=== PATIENT | male | born 1955 | race American Indian/Alaskan Native ===

== ENCOUNTER 2021-09-19 18:09 | Emergency (ER) | payer MEDICAID ==
[2021-09-19 18:37] VITALS: BP 133/90
[2021-09-20] MEDS ORDERED: cephALEXin 500 MG CAP PO ONE (11:10)
[2021-09-20] MEDS ORDERED: ACETAMINOPHEN 325 MG/10.15 ML ORAL LIQD UNIT DOSE PO ONE (11:10)
--- NOTE | 2021-09-20 11:10 | Emergency Department Report ---
ED General Adult HPI - General Chief complaint: Wound/Laceration Stated complaint: BLEEDING FROM AMPUTATED LEG Time Seen by Provider: 09/20/21 11:00 Source: EMS Mode of arrival: Stretcher Limitations: No Limitations - History of Present Illness Initial comments: Patient is a 66-year-old male with history of bilateral AKA who presents for bleeding from previous stump wound. He has no fevers no chills no active bleeding at this time. Patient arrived via EMS. States he called him after he noticed blood on his dressing. Patient performs self dressing care. Patient is alert oriented x3 appears with no acute distress. - Related Data Previous Rx's Medication Instructions Recorded Last Taken Type cephALEXin [Keflex] 500 mg PO Q8HR 7 Days #21 cap 09/20/21 Unknown Rx Allergies Allergy/AdvReac Type Severity Reaction Status Date / Time No Known Allergies Allergy Verified 09/19/21 18:37 ED Review of Systems ROS: Stated complaint: BLEEDING FROM AMPUTATED LEG Other details as noted in HPI Constitutional: denies: chills, fever Eyes: denies: eye pain, eye discharge, vision change ENT: denies: ear pain, throat pain Respiratory: no symptoms reported Cardiovascular: denies: chest pain, palpitations Endocrine: no symptoms reported Gastrointestinal: denies: abdominal pain, nausea, diarrhea Genitourinary: as per HPI Musculoskeletal: denies: back pain, joint swelling, arthralgia Skin: other (Small stasis ulcer right lateral external) Neurological: denies: headache, weakness, paresthesias Psychiatric: denies: anxiety, depression Hematological/Lymphatic: denies: easy bleeding, easy bruising ED Past Medical Hx - Past Medical History Previous Medical History?: No Hx Diabetes: Yes - Medications Home Medications: Home Medications Medication Instructions Recorded Confirmed Last Taken Type cephALEXin [Keflex] 500 mg PO Q8HR 7 Days #21 cap 09/20/21 Unknown Rx ED Physical Exam - General Limitations: No Limitations General appearance: alert, in no apparent distress - Head Head exam: Present: normocephalic, normal inspection - Eye Eye exam: Present: EOMI Pupils: Present: normal accommodation - ENT ENT exam: Present: mucous membranes moist - Neck Neck exam: Present: normal inspection, full ROM. Absent: tenderness, lymphadenopathy - Respiratory Respiratory exam: Present: normal lung sounds bilaterally. Absent: respiratory distress - Cardiovascular Cardiovascular Exam: Present: regular rate, normal rhythm, normal heart sounds. Absent: systolic murmur, diastolic murmur, rubs, gallop - GI/Abdominal GI/Abdominal exam: Present: soft, normal bowel sounds. Absent: distended, tenderness - Rectal Rectal exam: Present: deferred - Extremities Exam Extremities exam: Present: full ROM - Expanded Lower Extremity Exam Right Upper Leg exam: Present: tenderness, erythema (Mild erythema right lateral stasis ulcer no focal abscess no drainage at this time). Absent: swelling, abrasion, laceration, ecchymosis, deformity, crepidus, dislocation - Back Exam Back exam: Present: normal inspection, full ROM. Absent: CVA tenderness (R), CVA tenderness (L) - Neurological Exam Neurological exam: Present: alert, oriented X3 - Psychiatric Psychiatric exam: Present: normal affect, normal mood - Skin Skin exam: Present: warm, dry, intact, normal color, other (Stasis ulcer as above 2 to 3 cm mild erythema no drainage no crepitus no focal abscess nonfluctuant). Absent: rash ED Course Vital Signs 09/19/21 18:35 Temperature 98.4 F Pulse Rate 74 Respiratory 16 Rate Blood Pressure 133/90 [Left] O2 Sat by Pulse 99 Oximetry ED Medical Decision Making - Medical Decision Making Plan DC to home with prescription, dressing care as directed. Follow-up with your primary care doctor in 2 days. Return to emergency department should symptoms worsen. Critical care attestation.: If time is entered above; I have spent that time in minutes in the direct care of this critically ill patient, excluding procedure time. ED Disposition Clinical Impression: Cellulitis of right leg Disposition: HOME / SELF CARE / HOMELESS Is pt being admited?: No Does the pt Need Aspirin: No Condition: Stable Instructions: Cellulitis, Adult, [id number], Wound Care, Adult Additional Instructions: Take medications as prescribed, wound care as directed, follow-up with your doctor in 2 to 3 days. Return to emergency department for symptoms worsen. Prescriptions: cephALEXin [Keflex] 500 mg PO Q8HR 7 Days #21 cap Referrals: BARBARA GONZALEZ MD [Staff Physician] - 2-3 Days Time of Disposition: 11:18
== END 2021-09-20 15:25 | disposition home or self-care (01) ==
LOC: ED 18:09
DX: L03.115 Cellulitis of right lower limb (principal); E11.9 Type 2 diabetes mellitus without complications
CPT/HCPCS: 99283

== ENCOUNTER 2021-10-15 05:48 | Day surgery (SDC) | payer MEDICAID ==
[2021-10-15] MEDS ORDERED: LACTATED RINGERS 1,000 ML ONE (06:31)
[2021-10-15 07:06] LABS: Hematocrit 36.8 % (35.5-45.6); Hemoglobin 12.2 gm/dl (11.8-15.2); Mean Corpuscular HGB Conc 33 % (32-34); Mean Corpuscular Volume 78 fl (84-94); Platelet Count 173 K/mm3 (140-440); Red Blood Count 4.72 M/mm3 (3.65-5.03); Red Cell Distribution Width 16.9 % (13.2-15.2)
[2021-10-15 07:19] LABS: Alanine Aminotransferase 7 units/L (7-56); Albumin 3.9 g/dL (3.9-5); Blood Urea Nitrogen 16 mg/dL (9-20); Calcium 8.8 mg/dL (8.4-10.2); Hemolysis Index 0
[2021-10-15 07:20] LABS: BUN/Creatinine Ratio 27
[2021-10-15] MEDS ORDERED: fentaNYL 100 MCG/2 ML INJ ONE (07:44)
[2021-10-15] MEDS ORDERED: LIDOCAINE MPF (2%) 20 MG/1 ML VIAL 5 ML ONE (07:44)
[2021-10-15] MEDS ORDERED: propofoL 200 MG/20 ML VIAL IV ONE (07:44)
[2021-10-15] MEDS ORDERED: ONDANSETRON 4 MG/2 ML INJ ONE (07:44)
--- NOTE | 2021-10-15 07:44 | Anesthesia Day of Surgery ---
Anesthesia Day of Surgery - Day of Surgery Patient Examined: Yes Patient H&P Reviewed: Yes Patient is NPO: Yes
--- NOTE | 2021-10-15 07:44 | Anesthesia Consultation ---
Anesthesia Consult and Med Hx Date of service: 10/15/21 - Airway Anesthetic Teeth Evaluation: Dentures ROM Head & Neck: Adequate Mental/Hyoid Distance: Adequate Mallampati Class: Class II Intubation Access Assessment: Good - Pulmonary Exam CTA: Yes - Cardiac Exam Cardiac Exam: No Murmur - Pre-Operative Health Status ASA Pre-Surgery Classification: ASA3 - Pulmonary Hx Smoking: Yes - Endocrine Hx Renal Disease: Yes
[2021-10-15] MEDS ORDERED: GENTAMICIN/NS 80 MG/100 ML 100 ML IV SCH (08:00)
[2021-10-15] MEDS ORDERED: MIDAZOLAM 2 MG/2 ML INJ IV NR (08:00)
[2021-10-15] MEDS ORDERED: LACTATED RINGERS 1,000 ML IV SCH (08:00)
[2021-10-15] MEDS ORDERED: ceFAZolin/STERILE WATER 2 GM/20 ML SYRINGE IV NR (08:00)
[2021-10-15] MEDS ORDERED: GENTAMICIN/NS 80 MG/100 ML 100 ML IV ONE (08:05)
[2021-10-15] MEDS ORDERED: ceFAZolin/Water 2 GM/20 ML 2 GM/20 ML SYRINGE IV ONE (08:06)
[2021-10-15] MEDS ORDERED: PHENYLEPHRINE/NS 1,000 MCG/10 ML SYRINGE (OR USE) IV ONE (08:45)
[2021-10-15] MEDS ORDERED: WATER FOR IRRIG STERILE 2000 ML IR ONE (08:45)
--- NOTE | 2021-10-15 08:58 | Short Stay Summary ---
Short Stay Documentation Date of service: 10/15/21 - History H&P: obtained from office - Allergies and Medications Current Medications: Allergies No Known Allergies Allergy (Verified 09/19/21 18:37) Home Medications Medication Instructions Recorded Confirmed Last Taken Type cephALEXin [Keflex] 500 mg PO Q8HR 7 Days #21 cap 09/20/21 Unknown Rx Active Medications Lactated Ringer's (Lactated Ringers) 1,000 mls @ 100 mls/hr IV DIRECT DIXIE Midazolam HCl (Midazolam 2 Mg/2 Ml Inj) 2 mg IV PREOP NR Stop: 10/15/21 23:59 - Brief post op/procedure progress note Date of procedure: 10/15/21 Pre-op diagnosis: BPH, ELEVATED PSA 13 Post-op diagnosis: same Procedure: CYSTO, RPG, PUS 20CC, BX Anesthesia: GETA Surgeon: THELMA FLOR Estimated blood loss: minimal Pathology: list (PROSTATE CORES) Specimen disposition: to lab Condition: stable - Hospital course Hospital course: BACTRIM & ULTRAM ERX FROM OFFICE - Disposition Condition at discharge: Stable Disposition: 01 HOME / SELF CARE / HOMELESS Short Stay Discharge Plan Follow up with: PRIMARY CAREMD [Primary Care Provider] - 7 Days
[2021-10-15] MEDS ORDERED: dexAMETHasone 20 MG/5 ML VIAL ONE (09:11)
--- NOTE | 2021-10-15 09:17 | Fluoroscopy Report ---
FLUOROSCOPY RETROGRADE UROGRAPHY INDICATION: ELEVATED PSA. COMPARISON: None. IMPRESSION: 0.1 minutes of fluoroscopy time was provided by radiology during retrograde urography by the urologist. 4 fluoroscopic images are presented. 50 cc of Omnipaque 300 was utilized. No filling defect or abnormal dilatation is appreciated. Please correlate with the procedural report as needed. Signer Name: Kiran Henderson Jr, MD Signed: 10/15/2021 9:13 AM Workstation Name: [id number]
--- NOTE | 2021-10-15 09:19 | Ultrasound Report ---
Transrectal Ultrasound HISTORY: ELEVATED PSA. TECHNIQUE: Grayscale and color Doppler imaging performed. COMPARISON: None FINDINGS: Transrectal ultrasound guidance was provided by radiology during prostate biopsy by urology . Prostate volume measures 17.2 cc. IMPRESSION: Successful ultrasound-guided prostate biopsy by urology. Signer Name: Kiran Henderson Jr, MD Signed: 10/15/2021 9:15 AM Workstation Name: [id number]
[2021-10-15 10:15] VITALS: BP 114/78
--- NOTE | 2021-10-15 10:26 | Post Anesthesia Evaluation ---
- Post Anesthesia Evaluation Patient Participated: Yes Airway Patent: Yes Stable Respiratory Function: Yes Nausea/Vomiting: No Temp > 96.8F: Yes Pain Manageable: Yes Adequeate Hydration: Yes Anesthesia Complications: No
--- NOTE | 2021-10-15 12:59 | Operative Report ---
DATE OF SURGERY: 10/15/2021 PREOPERATIVE DIAGNOSIS: Benign prostatic hypertrophy, elevated PSA of 13. POSTOPERATIVE DIAGNOSIS: Benign prostatic hypertrophy, elevated PSA of 13. PROCEDURES: Cystoscopy, bilateral retrograde pyelograms, transrectal ultrasound, biopsy of prostate. (Ultrasound, 20 gram gland). SURGEON: Tanner Arellano MD ANESTHESIA: General. ESTIMATED BLOOD LOSS: Minimal. FLUIDS: Crystalloid. COMPLICATIONS: No complications. INDICATIONS: This 66-year-old gentleman was actually seen by Dr. Cho in our [place] office due to schizophrenia. He had an elevated PSA as well. It was felt prudent to do his evaluation under anesthesia. Unable to get a clear history if he has problems with urination. Sister is also apprised of his findings. Risks, benefits, complications were explained. The patient agreed to proceed. DESCRIPTION OF PROCEDURE: The patient was taken to the operative suite, placed in a supine position. After adequate general anesthesia, placed in the dorsal lithotomy position, prepped and draped in a sterile fashion. Pancystourethroscopy was performed with a 22-Greek Storz cystoscope, no urethral abnormalities. His prostate displayed mild obstruction. Bladder, no tumors or stones were noted. Both ureteral orifices in normal position. Bilateral retrograde pyelograms were obtained with an 8-Greek Latimer catheter and 8 mL of contrast. No filling defects or obstruction. Next, using a transrectal probe, a biplanar ultrasound was obtained, 20 gram gland. No obvious lesions could be appreciated. 12-core biopsy of the prostate was taken, 4 at the base, 4 at the mid, 4 at the apex. Rectal exam was benign. The patient tolerated the procedure well and was extubated and taken to recovery room. He will go home on Bactrim and Ultram. TID: [id number] RECEIPT: [id number] [facility]
== END 2021-10-15 09:55 | disposition home or self-care (01) ==
LOC: OR 05:48
PROVIDERS: ATTEND Urology
DX: N40.0 Benign prostatic hyperplasia without lower urinary tract symptoms (principal); C61 Malignant neoplasm of prostate; R97.20 Elevated prostate specific antigen [PSA]; Z79.899 Other long term (current) drug therapy; Z87.891 Personal history of nicotine dependence
CPT/HCPCS: 36415; 52005; 55700; 74420; 76872; 80053; 82962; 85027; 88305; 88344; C1758; J0690; J1100; J1580; J2370; J2405; J2704; J3010; J7120; Q9967

== ENCOUNTER 2021-11-20 08:49 | Outpatient (CLI) | payer MEDICAID ==
[2021-11-20 10:12] LABS: Blood Urea Nitrogen 9 mg/dL (9-20)
--- NOTE | 2021-11-20 13:20 | Cat Scan Report ---
CT abdomen pelvis wo/w con INDICATION: C61. COMPARISON: None TECHNIQUE: CT urogram of the abdomen and pelvis. All CT scans at this location are performed using CT dose reduction for ALARA by means of automated exposure control. FINDINGS: CT ABDOMEN and PELVIS: Lung Bases: No significant abnormality. Liver: No significant abnormality. Biliary: No significant abnormality. Spleen: No significant abnormality. Pancreas: No significant abnormality. Adrenals: No significant abnormality. Kidneys: No renal stones. No hydronephrosis. No suspicious renal mass. Simple cyst in the posterior l eft kidney. On delayed imaging, there is no filling defects in the opacified portions of the collecti ng system, ureters, or bladder. Bladder: No mass. Lymphatics: No lymphadenopathy. Vasculature: Atherosclerotic but nonaneurysmal abdominal aorta. Bowel: No significant abnormality. Pelvis: No significant abnormality. Osseous Structures: No aggressive osseous lesion. Additional Findings: None IMPRESSION: 1. No appreciable osseous or soft tissue metastases. Signer Name: Shai Schneider MD Signed: 11/20/2021 1:16 PM Workstation Name: [id number]
--- NOTE | 2021-11-20 13:41 | Nuclear Medicine Report ---
NUCLEAR MEDICINE BONE SCAN, WHOLE BODY INDICATION: C61. Initial staging of prostate cancer. TECHNIQUE: 25.5 mCi of Tc-99m MDP were injected IV. Whole body images were obtained. COMPARISON: CT abdomen pelvis performed the same day. FINDINGS: Skeletal Structures: Fairly symmetric, likely degenerative uptake is present involving the shoulders , sternoclavicular joints and right knee.. Skeletal Lesions: There is focal uptake in the proximal right femur just below the lesser trochanter. This appears to be secondary to internal fixation hardware securing a previous right femoral neck fr acture. No suspicious bony lesion is identified in this area. No other skeletal lesions are appreciat ed. Soft Tissues: Normal. Kidneys: Normal, symmetric activity. The bladder is filled with radiotracer and obscures resolution i n the pelvis. Additional Findings: Bilateral [id number] amputations.. IMPRESSION: No convincing evidence of osseous metastatic disease. There is focal uptake in the proximal right femoral shaft which appears to be secondary to internal f ixation hardware. No bone lesion is detected in this area on CT images. Distended bladder with radiotracer obscures resolution in the pelvis. Signer Name: Kiran Henderson Jr, MD Signed: 11/20/2021 1:37 PM Workstation Name: [id number]
== END 2021-11-20 08:50 | disposition home or self-care (01) ==
LOC: NM 08:49
PROVIDERS: ATTEND Urology
DX: C61 Malignant neoplasm of prostate (principal); N28.1 Cyst of kidney, acquired; Z89.611 Acquired absence of right leg above knee; Z89.612 Acquired absence of left leg above knee
CPT/HCPCS: 36415; 74178; 78306; 82565; 84520; A9503; Q9967